=== PATIENT | female | born 1950 | race Caucasian/White ===

== ENCOUNTER 2017-01-02 22:06 | Emergency (ER) | payer MEDICARE, BC ==
--- NOTE | 2017-01-02 23:05 | EDM.PDOC ---
ED HPI GENERAL MEDICAL PROBLEM - General Chief Complaint: Eye Problems Stated Complaint: VISION ISSUE Time Seen by Provider: 01/02/17 22:42 Source of Information: Reports: Patient History Limitations: Reports: No Limitations - History of Present Illness INITIAL COMMENTS - FREE TEXT/NARRATIVE: The patient presents with vision problems. She was looking at facebook this evening and after that she developed decreased vision to the left visual field. She had a prism in that area or kalidascope. She could still see but that was in the visual field. She had no pain, numbness or weakness. She has no eye pain. This has never happened to her before. It has been a very active day for her and stress full. She sees Dr Werner and Dr Tadeo for her eyes. That vision deficit is gone. Onset: Sudden Duration: Minutes: Improves with: Reports: None Worsens with: Reports: None Associated Symptoms: Reports: No Other Symptoms - Related Data Allergies Allergy/AdvReac Type Severity Reaction Status Date / Time Penicillins Allergy Other Verified 01/02/17 22:16 Home Meds: Home Meds Amitriptyline [Elavil] 10 mg PO BEDTIME 01/02/17 [History] Clorazepate [Clorazepate Dipotassium] 7.5 mg PO BID 01/02/17 [History] Metoprolol Succinate [Toprol XL] 50 mg PO BID 01/02/17 [History] Past Medical History Cardiovascular History: Reports: Other (See Below) Other Cardiovascular History: tachycardia-SVT Psychiatric History: Reports: Anxiety - Past Surgical History HEENT Surgical History: Reports: Adenoidectomy, Tonsillectomy Female Surgical History: Reports: Breast Biopsy, D&C, Tubal Ligation Social & Family History - Tobacco Use Smoking Status *Q: Never Smoker - Caffeine Use Caffeine Use: Reports: Coffee, Tea - Recreational Drug Use Recreational Drug Use: No ED ROS GENERAL - Review of Systems Review Of Systems: See Below Constitutional: Reports: No Symptoms HEENT: Reports: Other (Decreased vision) Respiratory: Reports: No Symptoms Cardiovascular: Reports: No Symptoms Endocrine: Reports: No Symptoms GI/Abdominal: Reports: No Symptoms ED EXAM GENERAL W FULL EYE - Physical Exam Exam: See Below Exam Limited By: No Limitations General Appearance: Alert, No Apparent Distress Eye Exam: Bilateral Eye: EOMI, PERRL Visual Acuity (R) 20/: 40 Visual Acuity (L) 20/: 200 With Correction: No Eyelids: Bilateral: Normal Appearance Conjunctiva & Sclera: Bilateral: Normal Appearance Cornea Exam: Bilateral: Normal Appearance Extraocular Movements: Bilateral: Intact Pupillary Size: Bilateral: 4 mm Pupillary Reaction: Bilateral: Brisk Anterior Chamber: Bilateral: Normal Appearance Posterior Chamber: Bilateral: Normal Funduscopic Ears: Normal External Exam Nose: Normal Inspection Head: Atraumatic, Normocephalic Neck: Normal Inspection Respiratory/Chest: No Respiratory Distress, Lungs Clear, Normal Breath Sounds Cardiovascular: Regular Rate, Rhythm, No Edema, No Murmur GI/Abdominal: Soft, Non-Tender, No Organomegaly, No Mass Extremities: Normal Inspection Course - Vital Signs Last Recorded V/S: Last Vital Signs Temp 97.1 F 01/02/17 22:29 Pulse 68 01/02/17 22:29 Resp 20 01/02/17 22:29 BP 140/73 01/02/17 22:29 Pulse Ox 99 01/02/17 22:29 - Re-Assessments/Exams Free Text/Narrative Re-Assessment/Exam: 01/02/17 23:12 The visual defect is gone. This appears to be a visual migraine brought on by the stress of the day. She did not want any further testing done. She will follow up with her composition roll maker and cutter or opthamologist. Departure - Departure Time of Disposition: 23:15 Disposition: Home, Self-Care 01 Condition: Good Clinical Impression: Migraine with visual aura - Discharge Information Referrals: Ravin Rivera MD [Primary Care Provider] - 1 Week Forms: ED Department Discharge Additional Instructions: Follow up with Dr Werner or Dr Tadeo. Please return if you are worse. If you have another one, try some caffeine and rest.
== END 2017-01-02 23:20 | disposition home or self-care (01) ==
LOC: JD.ED 22:06
DX: G43.109 Migraine with aura, not intractable, without status migrainosus (principal); Z88.0 Allergy status to penicillin
CPT/HCPCS: 99282; 99283

== ENCOUNTER 2023-02-16 13:07 | Emergency (ER) | payer MEDICARE, BC ==
[2023-02-16] MEDS ORDERED: Sodium Chloride 0.9% 500 ML IV ONE (14:13)
[2023-02-16] MEDS ORDERED: Acetaminophen 325 MG Tab PO ONE (14:14)
[2023-02-16] MEDS ORDERED: Ibuprofen 600 MG Tab PO ONE (14:15)
[2023-02-16 15:06] LABS: BASOPHILS PERCENT AUTO 0.2 % (0.0-1.0); HEMATOCRIT 39.7 % (37.0-47.0); HEMOGLOBIN 12.8 gm/dl (12.0-16.0); IMMATURE GRAN ABSOLUTE AUTO 0.08 K/mm3 (0.00-0.05); IMMATURE GRAN PERCENT AUTO 0.8 % (0.0-0.4); LYMPHOCYTES ABSOLUTE AUTO 0.5 K/mm3 (1.0-4.8); LYMPHOCYTES PERCENT AUTO 4.8 % (24.0-44.0); MEAN CORPUSCULAR HEMOGLOBIN 26.6 pg (28.0-32.0); MEAN CORPUSCULAR HGB CONC 32.2 g/dl (32.0-36.0); MEAN CORPUSCULAR VOLUME 82.4 fl (83.0-99.0); MEAN PLATELET VOLUME 9.8 fl (9.4-12.3); MONOCYTES ABSOLUTE AUTO 0.5 K/mm3 (0.0-0.8); MONOCYTES PERCENT AUTO 4.8 % (0.0-8.0); NEUTROPHILS ABSOLUTE AUTO 9.1 K/mm3 (1.8-7.7); NEUTROPHILS PERCENT AUTO 89.4 % (41.0-71.0); PLATELET COUNT,PLT 170 K/mm3 (150-400); RED BLOOD CELL COUNT 4.82 M/mm3 (4.10-5.30); WHITE BLOOD CELL COUNT,WBC 10.14 K/mm3 (3.9-11.3)
[2023-02-16 15:35] LABS: A/G RATIO 0.5 (1-2); ALBUMIN 2.2 g/dl (3.4-5.0); ANION GAP 11.7 (5-15); BILIRUBIN TOTAL 0.4 mg/dL (0.2-1.0); BUN/CREATININE RATIO 17.3 (14-18); CALCIUM 8.6 mg/dL (8.5-10.1); CREATININE 1.1 mg/dL (0.55-1.02); EST CRCL DRUG DOSING (CG) 33.86 mL/min; POTASSIUM,K 3.7 mEq/L (3.5-5.1); PROTEIN TOTAL,TP 6.3 g/dl (6.4-8.2)
[2023-02-16 15:47] LABS: CORONAVIRUS COVID-19 NAA NEGATIVE (NEGATIVE); INFLUENZA A NAA NEGATIVE (NEGATIVE)
[2023-02-16 16:04] LABS: C-REACTIVE PROTEIN 28.5 mg/dL (<1.0)
[2023-02-16] MEDS ORDERED: cefTRIAXone 2 GM in Sodium Chloride 0.9% 100 ML IV ONE (16:20)
== END 2023-02-16 17:58 | disposition home or self-care (01) ==
LOC: JD.ED 13:07
DX: L03.115 Cellulitis of right lower limb (principal); Z88.0 Allergy status to penicillin; Z20.822 Contact with and (suspected) exposure to COVID-19
CPT/HCPCS: 0240U; 36415; 80053; 83605; 85025; 86140; 93971; 96361; 96365; 99284; A9270; J0696; J3490; J7030